=== PATIENT | male | born 1995 | race Caucasian/White ===

== ENCOUNTER → 2024-06-13 | Emergency (ER) | payer SELFPAY ==
[~2024-06-13] VITALS: Ht 167.6 cm; Wt 86.2 kg
[~2024-06-13] MED LIST: ACET10DR15 LEFT EAR
[2024-06-13 20:39] VITALS: BP 154/73; TEMP 98.1; O2SAT 98
== END | disposition home or self-care (01) ==
LOC: ER 20:27
DX: H61.22 Impacted cerumen, left ear (principal); H60.92 Unspecified otitis externa, left ear; H92.02 Otalgia, left ear